=== PATIENT | female | born 1990 | race Caucasian/White ===

== ENCOUNTER 2016-05-11 14:42 | Inpatient (IN) | payer OTHER ==
[2016-05-11] MEDS ORDERED: LACTATED RINGERS 1,000 ML IV PRN (15:00)
[2016-05-11] MEDS ORDERED: OXYTOCIN IN LR 500 ML IV ONE (15:00)
[2016-05-11] MEDS ORDERED: OXYTOCIN 10 UNITS/ML VIAL IM ONE (15:00)
[2016-05-11] MEDS ORDERED: ONDANSETRON 4 MG/2ML 2 ML VIAL IV PRN ×2 (15:08→20:30)
[2016-05-11] MEDS ORDERED: LIDOCAINE 1% (PRES FREE) 30 ML VIAL ONE (15:09)
[2016-05-11] MEDS ORDERED: LIDOCAINE Viscous 2% 15 ML UDCUP ONE (15:09)
[2016-05-11] MEDS ORDERED: MINERAL OIL 25 ML BOT ONE (15:09)
[2016-05-11] MEDS ORDERED: PUMP TUBING ONE (15:09)
[2016-05-11] MEDS ORDERED: IV START KIT ONE (15:10)
[2016-05-11 15:52] LABS: HEMATOCRIT 33.1 % (37.0-47.0); MEAN CORPUSCULAR HEMOGLOBIN 27.9 pg (27.0-31.0); MEAN CORPUSCULAR HGB CONC 33.2 g/dl (33.0-37.0); RED CELL DISTRIBUTION WIDTH 13.7 % (11.5-14.5)
[2016-05-11 16:04] VITALS: BMI 32.1
[2016-05-11] MEDS ORDERED: BENZOCAINE/MENTHOL 60 APPLIC/BOT TP PRN (17:13)
[2016-05-11] MEDS ORDERED: LANOLIN 50 APPLIC/7G TUBE TP PRN (17:13)
[2016-05-11] MEDS ORDERED: MAGNESIUM HYDROXIDE 30 ML UDCUP PO PRN (17:13)
[2016-05-11] MEDS ORDERED: DIPHTH,PERTUSS(ACELL),TET VAC 0.5 ML VIAL IM V ONE (17:13)
[2016-05-11] MEDS ORDERED: MEASLES,MUMPS&RUBELLA VACCINE 0.5 ML VIAL SUB-Q V ONE (17:13)
[2016-05-11] MEDS: IBUPROFEN 800 MG TABLET PO PRN (18:17)
[2016-05-11] MEDS ORDERED: ONDANSETRON 4 MG ODT TAB PO PRN (20:34)
[2016-05-11] MEDS: HYDROCODONE/ACETAMINOPHEN 5/325MG TABLET PO PRN (20:40)
[2016-05-12] MEDS: IBUPROFEN 800 MG TABLET PO PRN ×2 (02:08→11:46)
[2016-05-12] MEDS: HYDROCODONE/ACETAMINOPHEN 5/325MG TABLET PO PRN ×2 (02:08→11:50)
[2016-05-12 06:06] LABS: HEMATOCRIT 31.8 % (37.0-47.0); HEMOGLOBIN 10.5 gm/l (12.0-16.0)
[2016-05-12] MEDS ORDERED: DOCUSATE SODIUM 100 MG CAPSULE PO SCH (09:00)
--- NOTE | 2016-05-12 11:21 | PDOC44 ---
- Subjective Day: 1 Reports Pain Tolerable, Reports , Reports Lochia Light, Reports Tolerating Regular Diet (Wants to go home) - Objective Temp Pulse Resp BP Pulse Ox 97.9 F 84 16 110/63 05/12/16 08:20 05/12/16 08:20 05/12/16 08:20 05/12/16 08:20 Lab Results 05/12/16 05/11/16 05:30 15:15 WBC 14.0 H RBC 3.94 L Hgb 10.5 L 11.0 L Hct 31.8 L 33.1 L Plt Count 197 Current Medications Generic Name Dose Route Start Last Admin Trade Name Freq PRN Reason Stop Dose Admin Acetaminophen/Hydrocodone Bitart 1 - 2 tab 05/11/16 17:13 05/12/16 02:08 [place] 5/325 PO 1 tab Q4H PRN Administration Pain (Moderate) Benzocaine/Menthol 1 applic 05/11/16 17:13 Dermoplast TP PRN PRN Patient Comfort Docusate Sodium 100 mg 05/12/16 09:00 05/12/16 10:03 Colace PO 100 mg DAILY JOSELUIS Administration Emollient Ointment 1 applic 05/11/16 17:13 05/12/16 02:08 [id number] TP 1 bot PRN PRN Administration sore nipples Ibuprofen 800 mg 05/11/16 17:13 05/12/16 02:08 Motrin PO 800 mg Q6H PRN Administration Pain (Mild) Magnesium Hydroxide 30 ml 05/11/16 17:13 Milk Of Magnesia PO BEDTIME PRN Constipation Ondansetron HCl 8 mg 05/11/16 20:30 05/11/16 21:21 Zofran IV 8 mg Q6H PRN Administration Nausea/Vomiting Ondansetron HCl 8 mg 05/11/16 20:34 05/12/16 10:03 Zofran Odt PO 8 mg Q6H PRN Administration Nausea/Vomiting Sodium Chloride 10 ml 05/11/16 17:13 Normal Saline 10ml Flush IV PRN PRN IV Flush Sodium Chloride 10 ml 05/12/16 01:00 Normal Saline 10ml Flush IV Q8HR JOSELUIS - Physical Exam General: Afebrile Psych/Mental Status: Mood/Affect Appropriate Breast: Soft Fundus: Firm Abdomen: Normal Bowel Sounds Genitourinary: Normal Female Genitalia Disposition: Stable, Anticipate DC to Home
[2016-05-12 17:37] VITALS: BP 114/62
== END 2016-05-12 17:57 | disposition home or self-care (01) | DRG 775 ==
LOC: FBCOUT 14:42 → FBC 14:43 → FBCOUT 14:58 → FBC 14:58
PROVIDERS: ADMIT Obstetrics & Gynecology; ATTEND Obstetrics & Gynecology
PROC: 10E0XZZ Delivery of Products of Conception, External Approach (ICD-10-PCS; principal; 2016-05-11)
DX: O69.81X0 Labor and delivery complicated by cord around neck, without compression, not applicable or unspecified (principal); Z3A.38 38 weeks gestation of pregnancy; Z37.0 Single live birth

== ENCOUNTER 2016-05-20 13:28 | Outpatient (CLI) | payer OTHER | END 2016-05-20 13:29 | disposition home or self-care (01) | LOC: BABIESSH 13:28 | PROVIDERS: ATTEND Obstetrics & Gynecology | DX: Z39.1 Encounter for care and examination of lactating mother (principal) ==